=== PATIENT | female | born 1945 | race Caucasian/White ===

== ENCOUNTER 2020-04-14 10:59 | Emergency (ER) | payer OTHER, SELFPAY ==
--- NOTE | ~2020-04-14 | CT_ITS ---
EXAMINATION: CT abdomen pelvis w con EXAM DATE: 04/14/2020 13:41 INDICATION: Left-sided upper abdominal pain. TECHNIQUE: Spiral CT of the abdomen and pelvis was performed following intravenous injection of 100 m L Omnipaque 350. Axial, coronal and sagittal images were reviewed. The dose-length product (DLP) fo r this examination was 427.69 mGy-cm. The exposure was tailored according to patient size (auto mA e xposure control), and iterative reconstruction (ASIR) was used as additional dose reduction technique . Comparison is made to prior examination from 12/29/2008. FINDINGS: The liver, spleen, adrenal glands and pancreas are unremarkable. Gallbladder is unremarkab le. No biliary obstruction. Portal and splenic veins are patent. Kidneys enhance symmetrically. T here is no hydronephrosis. Patient has had hysterectomy. There is a right adnexal mass measuring 4 x 6 cm; recommend pelvic sonogram to evaluate possibility of ovarian neoplasm. The bladder is unremark able. There is no retroperitoneal or pelvic lymphadenopathy. The stomach and small bowel are unremarkable. There is moderate descending and sigmoid colonic diver ticulosis. Moderate amount of inflammation along the descending colon with focal wall thickening like ly edema. Appearance most consistent with acute uncomplicated diverticulitis. Inflammatory cancer is much less likely. No free intraperitoneal gas. The heart is normal in size. There are no pericar dial or pleural effusions. There are no osteoblastic or osteolytic lesions identified. Left hemipel vis Paget's disease. There is mild to moderate lumbar levoscoliosis and moderate to severe spondylosi s. Mild basilar emphysema. IMPRESSION: 1. Incidental right ovarian 6 cm mass; recommend MILL OPERATOR consult, pelvic sonogram for further evaluation . 2. Findings consistent with acute uncomplicated descending colonic diverticulitis. Follow-up CT or c olonoscopy recommended once acute symptoms resolve. 3. Paget's disease. Reviewed, dictated and finalized at location [facility]. IMPRESSION: 1. Incidental right ovarian 6 cm mass; recommend MILL OPERATOR consult, pelvic sonogram for further evaluation. 2. Findings consistent with acute uncomplicated descending colonic diverticuli tis. Follow-up CT or colonoscopy recommended once acute symptoms resolve. 3. Paget's disease.
[2020-04-14 11:24] VITALS: BP 121/87; PULSE 129; RESP 16; TEMP 36.3; O2SAT 99
[2020-04-14 12:30] VITALS: BP 121/87; PULSE 129; RESP 16; TEMP 36.3; O2SAT 99
--- NOTE | 2020-04-14 12:37 | ED.GENADULT ---
HPI - General Adult General Chief complaint: Urogenital-Female Stated complaint: left flank pain Time Seen by Provider: 04/14/20 12:09 Source: patient History of Present Illness HPI narrative: Patient is a 74 y/o female complaining left upper abdominal pain starting 2 days ago. She states that her pain feels like contractions and rates it as 6/10. Her pain radiates to her left lower abdomen. She has no vomiting, diarrhea or dysuria. Related Data Home Medications Medication Instructions Recorded Confirmed Lactobacillus acidophilus 1,000 mmu cells PO DAILY 05/17/19 05/24/19 ascorbic acid-collagen [Collagen 2 cap PO 05/17/19 Plus Vitamin C] aspirin [Enteric Coated Aspirin] 81 mg PO DAILY 05/17/19 05/17/19 azelastine 1 spray INTRANASAL Q12H PRN 05/17/19 05/17/19 biotin 1 mg 05/17/19 cholecalciferol (vitamin D3) 2,000 unit 05/17/19 [Vitamin D3] fluticasone propionate [Flonase 1 spray INTRANASAL DAILY PRN 05/17/19 05/24/19 Allergy Relief] lisinopril 40 mg PO DAILY 05/17/19 05/24/19 metformin 500 mg PO BID 05/17/19 05/24/19 omeprazole 40 mg PO DAILY 05/17/19 05/24/19 simvastatin 5 mg PO HS 05/17/19 05/24/19 Allergies Allergy/AdvReac Type Severity Reaction Status Date / Time codeine Allergy Unknown Verified 05/24/19 07:30 Review of Systems Constitutional: Constitutional: Denies chills, Denies fever(s), Denies headache(s) and Denies weakness Eyes: Eyes: Denies blurry vision ENT: Denies headache(s) and Denies neck pain Cardiovascular: Cardiovascular: Denies chest pain and Denies dyspnea Respiratory: Respiratory: Denies cough and Denies dyspnea Gastrointestinal: Gastrointestinal: Reports abdominal pain, Denies diarrhea, Denies nausea and Denies vomiting Genitourinary: Genitourinary: Denies hematuria and Denies dysuria Musculoskeletal: Musculoskeletal: Denies back pain and Denies neck pain Neurologic: Denies headache(s) and Denies weakness [facility] Past Medical History Medical History Arthritis Diabetes GERD (gastroesophageal reflux disease) Peripheral neuropathy Family History Family History Mother Cerebrovascular accident, Onset Age: 82 Sibling Family history of lung cancer Patient's sister is Family history of gastrointestinal disorder Father Family history of alcoholism, Onset Age: 70 Social History Social History Smoking status: Never smoker Alcohol intake: never Exam Const: General: no acute distress and well developed Orientation/consciousness: oriented to person, oriented to place, oriented to time and patient oriented x3 HENMT: Head: normocephalic Ears: external ears normal General nose exam: Normal external nose present Eyes: General: appearance normal, both eyes and all related structures Conjunctivae: conjunctivae normal Neck: Neck: normal visual inspection and full ROM Chest: Chest palpation & inspection: normal inspection of the chest and no tenderness Resp: Effort & Inspection: normal respiratory effort Auscultation: clear to auscultation bilaterally Cardio: Rate: tachycardic Rhythm: regular rhythm GI: GI Palp: Yes abdominal tenderness (Left upper and left lower quadrant) and Yes Soft to palpation Skin: General skin exam: normal color and turgor normal Neuro: General: oriented to person, oriented to place, oriented to time and patient oriented x3 Cognition (Neuro): normal cognition Extrem: General: normal to inspection, full ROM and no pedal edema Psych: Appearance: grossly normal Mental Status: mental status grossly normal Affect: normal affect Course Reevaluation(s) Reevaluation #1: Rechecked patient. Discussed with her about CT findings of diverticulitis and ovarian mass. Offered patient admission for IV antibiotics, but patient declined. She preferred to be di
[2020-04-14 12:42] LABS: Basophils Absolute Auto 0.1 K/mm3 (0.0-0.1); Basophils Percent Auto 0.6 % (0.2-1.2); Eosinophils Absolute Auto 0.1 K/mm3 (0-0.3); Eosinophils Percent Auto 0.4 % (0-4.4); Hematocrit 40.7 % (37.0-47.0); Hemoglobin 13.1 g/dL (12.0-15.0); Immature Granulocyte Absolute 0.04 K/mm3 (0.00-0.031); Immature Granulocyte Percent A 0.3 % (0-0.5); Lymphocytes Absolute Auto 2.26 K/mm3 (0.9-3.2); Lymphocytes Percent Auto 16.5 % (18.3-44.2); Mean Corpuscular HGB Conc 32.2 g/dl (32-36); Mean Corpuscular Hemoglobin 30.8 pg (26-34); Mean Corpuscular Volume 95.5 fl (80-100); Mean Platelet Volume 12.5 fl (7.4-10.4); Monocytes Absolute Auto 1.3 K/mm3 (0.1-0.6); Monocytes Percent Auto 9.1 % (2.6-8.5); Neutrophils Percent Auto 73.1 % (45.5-73.1); Platelet Count Result 208 k/mm3 (150-375); Red Blood Count 4.26 M/mm3 (4.2-5.4); Red Cell Distribution Width 14.2 % (11.5-14.5); White Blood Count 13.7 K/mm3 (4.5-10.0)
--- NOTE | 2020-04-14 12:51 | PC.NURSE ---
Patient refused EKG stating she feels this is not related to her heart and is wanting to avoid unnecessary cost. informed.
[2020-04-14 12:54] LABS: Anion Gap 9 mmol/L (8-16); Blood Urea Nitrogen 20 mg/dL (7-17); Carbon Dioxide 29 mmol/L (22-30); Chloride 101 mmol/L (98-107); Estimated CRCL calculation 31 ml/min; Estimated Glomerular Filt Rate 40; Glucose 132 mg/dL (65-105); Potassium 4.6 mmol/L (3.4-5.0); Sodium 139 mmol/L (137-145)
[2020-04-14] MEDS: KETOROLAC 15 MG/ML VIAL (*BKC) IV PUSH (13:15)
[2020-04-14 14:08] VITALS: BP 139/93; PULSE 99; RESP 16; O2SAT 99
[2020-04-14 14:25] LABS: Add Urine Microscopic? NO; Appearance Urine Clear (Clear); Bilirubin Urine Negative (Negative); Blood Urine Negative (Negative); Color Urine Yellow (Yellow); Glucose Urine UA Negative (Negative); Ketones Urine Negative (Negative); Leukocyte Esterase Ur Negative LEU/UL (Negative); Nitrate Urine Negative (Negative); Protein Urine Negative (Negative); Urobilinogen Urine Negative mg/dL (<2.0)
[2020-04-14 14:26] LABS: Bacteria Urine Trace /hpf; Mucus Urine Few /lpf; RBC Urine 0-2 /hpf (0-2); Squamous Epithelial Cell Urine Few /hpf (Few)
[2020-04-14] MEDS: CIPROFLOXACIN 400 MG/D5W 200ML 200 ML 200 MG IVPB (14:28)
[2020-04-14] MEDS: metroNIDAZOLE 500 MG/ISO 100ML 500 MG/100 ML BAG 100 MG IVPB (14:28)
[2020-04-14 14:30] LABS: Specific Grav Ur 1.036 (1.001-1.035)
[2020-04-14 15:45] VITALS: BP 139/75; PULSE 88; RESP 12; O2SAT 98
== END 2020-04-14 15:45 | disposition home or self-care (01) ==
PROVIDERS: Emergency Medicine; Emergency Provider Emergency Medicine; PCP Student in an Organized Health Care Education/Training Program
DX: K57.92 Diverticulitis of intestine, part unspecified, without perforation or abscess without bleeding (principal); N83.9 Noninflammatory disorder of ovary, fallopian tube and broad ligament, unspecified; Z79.82 Long term (current) use of aspirin; Z79.84 Long term (current) use of oral hypoglycemic drugs; M19.90 Unspecified osteoarthritis, unspecified site; E11.42 Type 2 diabetes mellitus with diabetic polyneuropathy
CPT/HCPCS: 36415; 74177; 80048; 81003; 85025; 96365; 96368; 96375; 99284; J0744; J1885; Q9967

== ENCOUNTER → 2020-05-09 10:52 | Outpatient (CLI) | payer OTHER, SELFPAY ==
--- NOTE | ~2020-05-09 | CT_ITS ---
EXAMINATION: CT abdomen pelvis w con DATE: 05/09/2020 11:28 INDICATION: Diverticulitis TECHNIQUE: Computed tomography (CT) of the abdomen and pelvis was performed with 100 cc Omnipaque 350 intravenous contrast. Automated exposure control and iterative reconstruction technique were employe d. Exam dose: 609.77 mGy-cm total exam DLP. COMPARISON: 04/14/2020 CT abdomen pelvis FINDINGS: Minimal atelectasis at the lung bases. No pericardial or pleural effusion. Heart size is within normal limits. The liver, gallbladder, bile ducts, spleen, pancreas and pancreatic duct are normal in appearance. Normal adrenal glands. No renal mass lesion or urinary tract calculus or hydroureteronephrosis. The urinary bladder is unrem arkable. Again noted is an approximately 4 x 6 cm soft tissue mass in the right adnexal area. Right ovarian ma lignancy cannot be excluded. Consider further evaluation with pelvic ultrasound examination. There is mild to moderate diffuse urinary bladder wall thickening; cystitis is not excluded. The uterus and left ovary are not identified. Normal caliber of the abdominal aorta. No intraperitoneal or retroperitoneal or pelvic mass lesion or adenopathy or ascites is noted otherwise. Small sliding hiatal hernia. There are numerous diverticula of the sigmoid and descending colon; no CT evidence of diverticulitis. There are some small bowel air-fluid levels but no abnormal dilatation of small or large bowel. 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 There is severe degenerative disease at T12-L1. There is degenerative disc disease of moderately noris re degree at L2-3, L3-4, L4-5 and L5-S1. IMPRESSION: Diverticulosis of left colon. No evidence of diverticulitis. Resolution of distal descen ding colon diverticulitis since 04/14/2020 Small sliding hiatal hernia 4 x 6 cm right adnexal mass, of concern for right ovarian malignancy. Consider further evaluation wit h pelvic ultrasound examination Reviewed, dictated and finalized at [facility]. Reviewed, dictated and finalized at location [facility]. IMPRESSION: Diverticulosis of left colon. No evidence of diverticulitis. Resol ution of distal descending colon diverticulitis since 04/14/2020 Small sliding hiatal hernia 4 x 6 cm right adnexal mass, of concern for right ovarian malignancy. Consider further evaluation with pelvic ultrasound examination
[2020-05-09 11:14] LABS: Estimated Glomerular Filt Rate 49
== END ==
PROVIDERS: PCP Student in an Organized Health Care Education/Training Program; Visit Provider Student in an Organized Health Care Education/Training Program
DX: Z87.19 Personal history of other diseases of the digestive system (principal); K44.9 Diaphragmatic hernia without obstruction or gangrene; K57.30 Diverticulosis of large intestine without perforation or abscess without bleeding; N83.201 Unspecified ovarian cyst, right side
CPT/HCPCS: 74177; Q9967

== ENCOUNTER → 2020-06-13 15:17 | Outpatient (CLI) | payer OTHER, SELFPAY ==
--- NOTE | ~2020-06-13 | MM_ITS ---
EXAMINATION: MM screening daija BI w merlyn HISTORY: Screening mammogram TECHNIQUE: Craniocaudal and mediolateral oblique 3-D tomosynthesis images were obtained and synthetic 2-D images were generated. CAD analysis was submitted and interpreted. COMPARISON: 02/12/2019 bilateral digital screening mammogram 01/19/2018 limited left breast ultrasound 05/30/2018, 12/13/2016 bilateral digital screening mammogram examinations BREAST PARENCHYMAL COMPOSITION: FINDINGS: Benign calcifications There is no evidence of suspicious mass, calcification, or architectu ral distortion to suggest malignancy in either breast. There has been no suspicious interval change. IMPRESSION: 1. No mammographic evidence of malignancy. 2. Recommend routine screening mammography in one year. BI-RADS Category 2: Benign finding(s). Reviewed, dictated and finalized at location A. CAL OR SURGICAL INSTRUMENT MAKER
== END ==
PROVIDERS: PCP Student in an Organized Health Care Education/Training Program; Visit Provider Obstetrics & Gynecology
DX: Z12.31 Encounter for screening mammogram for malignant neoplasm of breast (principal)
CPT/HCPCS: 77063; 77067

== ENCOUNTER 2020-06-18 11:32 | Outpatient (CLI) | payer OTHER, SELFPAY ==
--- NOTE | 2020-06-18 11:36 | ECG_ITS ---
Measurements Intervals [place] Rate: 89 P: 32 NC: 153 QRS: -4 QRSD: 80 T: 46 QT: 339 QTc: 414 Interpretive Statements SINUS RHYTHM POSSIBLE LEFT ATRIAL ENLARGEMENT POSSIBLE LEFT VENTRICULAR HYPERTROPHY INFERIOR INFARCT, AGE INDETERMINATE BASELINE ARTIFACT- I, II, III, AVR, AVL, AVF, V4 ABNORMAL ECG Electronically Signed On 06-18-2020 12:27:59 FOREIGN EXCHANGE CLERK by Daniel Rangel D.O.
[2020-06-18 12:03] LABS: Anion Gap 11 mmol/L (8-16); Blood Urea Nitrogen 16 mg/dL (7-17); Calcium 9.9 mg/dL (8.4-10.2); Carbon Dioxide 28 mmol/L (22-30); Chloride 103 mmol/L (98-107); Estimated Glomerular Filt Rate > 60; Glucose 108 mg/dL (65-105); Potassium 4.7 mmol/L (3.4-5.0); Sodium 142 mmol/L (137-145)
== END 2020-06-18 11:33 | disposition home or self-care (01) ==
LOC: ANHSURGERY 11:36
PROVIDERS: Anesthesiology; PCP Student in an Organized Health Care Education/Training Program; Visit Provider Obstetrics & Gynecology
DX: N83.8 Other noninflammatory disorders of ovary, fallopian tube and broad ligament (principal); I10 Essential (primary) hypertension; E11.9 Type 2 diabetes mellitus without complications; Z01.818 Encounter for other preprocedural examination; R94.31 Abnormal electrocardiogram [ECG] [EKG]
CPT/HCPCS: 36415; 80048; 86850; 86900; 86901; 93005

== ENCOUNTER 2020-06-20 02:06 | Outpatient (CLI) | payer OTHER, SELFPAY ==
[2020-06-20 18:46] LABS: SARS-CoV-2 RNA PCR Negative
== END 2020-06-20 02:07 | disposition home or self-care (01) ==
LOC: ANHCOVIDDT 02:07
PROVIDERS: PCP Student in an Organized Health Care Education/Training Program; Visit Provider Obstetrics & Gynecology
DX: Z01.818 Encounter for other preprocedural examination (principal); Z20.828 Contact with and (suspected) exposure to other viral communicable diseases
CPT/HCPCS: 87635; C9803; U0003

== ENCOUNTER 2020-06-23 01:35 | Day surgery (SDC) | payer OTHER, SELFPAY ==
[2020-06-16 16:00] VITALS: BMI 27.5
[2020-06-23] VITALS (9 sets, daily range): BP systolic 127–161; BP diastolic 55–78; PULSE 70–97; RESP 13–16; TEMP 36.2–36.8; O2SAT 90–100
[2020-06-23] MEDS: ACETAMINOPHEN 500 MG TABLET 1000 MG PO (09:58)
[2020-06-23] MEDS: KETOROLAC 15 MG/ML VIAL (*BKC) IV PUSH (10:12)
[2020-06-23 10:17] LABS: Glucose Point of Care 127 (65-105)
--- NOTE | 2020-06-23 10:53 | WPDANESEPPF ---
Anes - Initial Pre Proc Eval Procedure: Operation Date: 06/23/20 11:30 Proposed Procedures p Laparoscopic Bilateral Salpingo-Oophorectomy - Sraah Sinclair MD Date/Time: 06/23/20 10:53 Surgeon: Sarah Sinclair MD Pre Op Diagnosis: Ovarian Mass Patient Data Age: 74 Gender: F Height: 1.63 m Weight: 71.2 kg Last Vital Signs Temp 36.8 C 06/23/20 09:54 Pulse 85 06/23/20 09:54 Resp 16 06/23/20 09:54 BP 137/74 06/23/20 09:54 Pulse Ox 97 06/23/20 09:54 Allergies Allergy/AdvReac Type Severity Reaction Status Date / Time codeine AdvReac Unknown Fatigued/FA Verified 06/23/20 10:00 INTED Home Medications Medication Instructions Recorded Confirmed Type Lactobacillus acidophilus 1,000 mmu cells PO DAILY 05/17/19 06/23/20 History ascorbic acid-collagen [Collagen 3 cap PO DAILY 05/17/19 06/23/20 History Plus Vitamin C] azelastine 1 spray INTRANASAL Q12H PRN 05/17/19 06/23/20 History biotin 1 mg PO DAILY 05/17/19 06/23/20 History cholecalciferol (vitamin D3) 2,000 unit PO DAILY 05/17/19 06/23/20 History [Vitamin D3] fluticasone propionate [Flonase 1 spray INTRANASAL DAILY PRN 05/17/19 06/23/20 History Allergy Relief] lisinopril 40 mg PO DAILY 05/17/19 06/23/20 History metformin 500 mg PO BID 05/17/19 06/23/20 History omeprazole 20 mg PO DAILY 05/17/19 06/23/20 History simvastatin 20 mg PO HS 05/17/19 06/23/20 History tolterodine 2 mg capsule,extended 2 mg PO DAILY #90 cap 08/01/19 06/23/20 Rx release 24 hr aspirin 325 mg PO DAILY 06/16/20 06/23/20 History magnesium 500 mg PO DAILY 06/16/20 06/23/20 History multivitamin with minerals 3 tablet PO DAILY 06/16/20 06/23/20 History [Hair,Skin and Nails] Laboratory Tests 06/23/20 10:09 POC Capillary Glucose 127 mg/dl H mg/dl (65-105) Patient hx anesthesia problems: none Family hx anesthesia problems: none [facility] Past Medical History Medical History (Updated 06/23/20 @ 10:53 by Reggie Ugarte DO) Arthritis Diabetes GERD (gastroesophageal reflux disease) Hyperlipidemia Hypertension Peripheral neuropathy Family History Family History Mother Cerebrovascular accident, Onset Age: 82 Sibling Family history of lung cancer Patient's sister is Family history of gastrointestinal disorder Father Family history of alcoholism, Onset Age: 70 Social History Social History Smoking status: Never smoker Alcohol intake: never Living arrangements: with family Spiritual care concerns: No Anes - Eval Final PreProcedure Day of Procedure 06/23/20 10:53 Patient weight: overweight Heart: regular rate and rhythm Lungs: clear to auscultation and normal air movement Airway: Mallampati scale class II Neurological: alert and oriented Last oral intake: >/= 8 hours ASA classification: III Emergent: no Anesthetic plan: proceed Anesthesia type and monitoring: general ETT and standard monitoring Informed Consent: The patient's anesthetic plan and its attendant risks and benefits were discussed with the patient/family/POA. Questions were solicited and answers provided to the satisfaction of the patient/family/POA.
--- NOTE | 2020-06-23 11:03 | SUR.PREOP ---
1055-PT AWARE SURGEON DELAYS SELF ~30 MINUTES. DOES NOT DESIRE BE NOTIFIED OF DELAY.
[2020-06-23] MEDS: LACTATED RINGERS 1,000 ML 30 ML IV CONT ×2 (11:15→13:41)
--- NOTE | 2020-06-23 11:23 | WPDHPUPDATE1 ---
History and Physical Update Update Date/Time: 06/23/20 11:23 History and Physical has been reviewed, including an updated exam of the patient. There are NO changes in the patient's condition. Risks, benefits, and alternatives have been discussed and questions answered. Patient agrees to proceed with procedure.
--- NOTE | 2020-06-23 13:37 | PM.PROC ---
Procedure Note - Detailed Date of procedure: 06/23/20 Pre-op diagnosis: Ovarian Mass Post-op diagnosis: same (Intra-abdominal adhesions) Procedure performed: Laparoscopic bilateral salpingo-oophorectomy with adhesiolysis -45 minutes Description of procedure: The patient was taken the operating room. She was prepped and draped in the dorsal lithotomy position after induction of general anesthesia. A 5 mm left upper quadrant incision was made in the abdominal skin with a scalpel. A 5 mm trocar was inserted the intra-abdominal cavity under direct visualization of the scope. A 11 mm left lower quadrant incision was made with the scalp on the abdominal skin and a 11 mm trocar was inserted the intra-abdominal cavity under direct visualization of the scope. A 5 mm infraumbilical incision was made with scalpel and a 5 mm trocar was inserted into the intra-abdominal cavity under direct visualization of the scope. Adhesiolysis was performed for about 1 hour. The omentum was densely adherent to the lower 3rd of the abdominal wall. Careful sharp and blunt dissection were performed along with cautery. The right ovary was then amputated. It was the larger ovary. The infundibulopelvic ligament was raised after identification of the ureter and was cauterized transected with LigaSure. The para ovarian tissue was cauterized transected in a similar fashion all the way around the ovary until was amputated. It was placed in endobag thickened and very small pieces. The left ovary was amputated in a similar fashion. The ureter was dissected down the right side and it was intact from the pelvic brim down to the area of the uterine artery. The pelvis was irrigated with copious amounts of normal saline. The pneumoperitoneum was reduced. The trocars were removed. The patient was taken recovery room stable condition. Sponge lap and needle counts were correct x2. Anesthesia: GETA Surgeon: Sarah Sinclair MD Estimated blood loss (mL): 20 Drains: No Packing: No Complications: No immediate complications Condition: stable Disposition: PACU Findings: Intra-abdominal adhesions, enlarged right ovary containing soft yellow tissue., normal left ovary,
[2020-06-23 13:47] LABS: Glucose Point of Care 129 (65-105)
[2020-06-23] MEDS: fentaNYL CITRATE INJ (*CRX) 100 MCG/2 ML VIAL 25 MCG IV PUSH ×3 (13:53→14:28)
[2020-06-23] MEDS: oxyCODONE HCL (*CRX) 5 MG TAB IR PO (15:06)
== END 2020-06-23 15:47 | disposition home or self-care (01) ==
PROVIDERS: PCP Student in an Organized Health Care Education/Training Program; Visit Provider Obstetrics & Gynecology
PROC: (CPT 49320; principal; 2020-06-23 11:30)
DX: D27.0 Benign neoplasm of right ovary (principal); N73.6 Female pelvic peritoneal adhesions (postinfective); I10 Essential (primary) hypertension; E11.42 Type 2 diabetes mellitus with diabetic polyneuropathy; E78.5 Hyperlipidemia, unspecified; K21.9 Gastro-esophageal reflux disease without esophagitis; Z79.84 Long term (current) use of oral hypoglycemic drugs; Z79.82 Long term (current) use of aspirin
CPT/HCPCS: 58661; 88305; 88307; A9270; J1100; J1885; J2250; J2405; J2704; J2710; J3010; J7030; J7120

== ENCOUNTER → 2020-07-29 10:20 | Outpatient (CLI) | payer OTHER, SELFPAY ==
--- NOTE | ~2020-07-29 | DEXA_ITS ---
Bone Density Report Name: Lashawn lAexander Age: 74 Sex: Female Ethnicity: White Date of : 1945 Indication: postmenopausal; screening for osteoporosis; height loss; prior fracture; hysterectomy; Referring Provider: Sarah Sinclair Study: Bone densitometry was performed. Exam Date: July 29, 2020 Accession number: [id number] Bone Density: Region BMD T-score Z-score Classification AP Spine (L2, L3, L4) 1.093 0.1 2.5 Normal Femoral Neck (Left) 0.732 -1.1 1.0 Osteopenia Total Hip (Left) 0.934 -0.1 1.7 Normal Femoral Neck (Right) 0.719 -1.2 0.8 Osteopenia Total Hip (Right) 0.908 -0.3 1.4 Normal Total Hip Mean 0.921 -0.2 1.6 Normal World Health Organization criteria for BMD impression classify patients as: Normal (T-score at or above -1.0), Osteopenia (T-score between -1.0 and -2.5), or Osteoporosis (T-score at or below -2.5). 10-year Fracture Risk(1): Major Osteoporotic Fracture 15% Hip Fracture 2.2% Reported Risk Factors: [place] (), Neck BMD=0.719, BMI=28.0, previous fracture (1) FRAX(R) Version 3.08. Fracture probability calculated for an untreated patient. Fracture probability may be lower if the patient has received treatment. Previous Exams: Region Exam Age BMD T-score BMD Change BMD Change Date g/cm2 vs Baseline vs Previous AP Spine(L2, L3, L4) 07/29/2020 74 1.093 0.1 0.070* -0.066* 03/21/2017 71 1.159 0.7 0.137* 0.070* 11/20/2014 69 1.090 0.1 0.067* -0.001 01/01/2011 65 1.091 0.1 0.068* 0.063* 11/27/2008 63 1.028 -0.5 0.005 0.005 11/23/2006 61 1.023 -0.5 Total Hip(Left) 07/29/2020 74 0.934 -0.1 0.038* -0.001 03/21/2017 71 0.935 -0.1 0.039* 0.038* 11/20/2014 69 0.898 -0.4 0.001 0.005 01/01/2011 65 0.893 -0.4 -0.004 0.068* 11/27/2008 63 0.825 -1.0 -0.072* -0.072* 11/23/2006 61 0.896 -0.4 Total Hip(Right) 07/29/2020 74 0.908 -0.3 0.009 -0.029* 03/21/2017 71 0.937 0.0 0.038* -0.009 11/20/2014 69 0.946 0.0 0.047* 0.067* 01/01/2011 65 0.880 -0.5 -0.020 0.006 11/27/2008 63 0.874 -0.6 -0.025 -0.025 11/23/2006 61 0.899 -0.4 *Denotes significance at 95% confidence level, LSC for AP Spine = 0.022 g/cm2, LSC for Total Hip = 0.027 g/cm2 Clinical Information Provided by Patient: ----
== END ==
PROVIDERS: PCP Student in an Organized Health Care Education/Training Program; Visit Provider Obstetrics & Gynecology
DX: Z78.0 Asymptomatic menopausal state (principal); M85.852 Other specified disorders of bone density and structure, left thigh; M85.851 Other specified disorders of bone density and structure, right thigh
CPT/HCPCS: 77080

== ENCOUNTER → 2020-09-02 13:12 | Outpatient (CLI) | payer OTHER, SELFPAY ==
--- NOTE | ~2020-09-02 | CT_ITS ---
EXAMINATION: CT abdomen pelvis w con DATE: 09/02/2020 13:40 INDICATION: Left lower quadrant abdominal pain TECHNIQUE: Computed tomography (CT) of the abdomen and pelvis was performed with 100 cc Omnipaque 350 intravenous contrast. Automated exposure control and iterative reconstruction technique were employe d. Exam dose: 534.47 mGy-cm total exam DLP. COMPARISON: 05/09/2020 CT abdomen pelvis FINDINGS: There are likely chronic interstitial changes predominating in the peripheral lower lung zo annie. Heart size is borderline. No pericardial or pleural effusion. The liver, gallbladder, bile ducts, spleen, pancreas and pancreatic duct are unremarkable. Normal mor phology of the adrenal glands. Probable very small mid lateral right renal cyst. The kidneys are otherwise unremarkable. No urinary tract calculus or hydroureteronephrosis. Normal caliber of the abdominal aorta. No intraperitoneal or retroperitoneal or pelvic mass lesion or adenopathy or ascites. Status post hysterectomy. The urinary bladder is unremarkable. Small sliding hiatal hernia. There are innumerable diverticula of the sigmoid and descending colon; no CT evidence of diverticulit is is detected. No abscess. No bowel obstruction, bowel wall thickening, pneumatosis or intraperitone al free air. Incidental finding of Paget's disease of the left hemipelvis. There is severe degenerative disc disease and eburnation and spurring at T12-L1. Multilevel degenerat larisa disc disease of the lumbar spine. IMPRESSION: Diverticulosis of the sigmoid and descending colon; no CT evidence of diverticulitis Paget's disease of the left hemipelvis Prominent degenerative disc disease of the lower thoracic and lumbar spine Status post hysterectomy Small sliding hiatal hernia Reviewed, dictated and finalized at [facility]. Reviewed, dictated and finalized at location [facility]. ATTENDANT
[2020-09-02 13:30] LABS: Estimated Glomerular Filt Rate 54
== END ==
PROVIDERS: PCP Student in an Organized Health Care Education/Training Program; Visit Provider Student in an Organized Health Care Education/Training Program
DX: K57.92 Diverticulitis of intestine, part unspecified, without perforation or abscess without bleeding (principal); K44.9 Diaphragmatic hernia without obstruction or gangrene; M88.88 Osteitis deformans of other bones
CPT/HCPCS: 74177; Q9967

== ENCOUNTER 2020-10-12 16:24 | Emergency (ER) | payer OTHER, SELFPAY ==
--- NOTE | ~2020-10-12 | CT_ITS ---
EXAMINATION: CT abdomen pelvis wo con DATE: 10/12/2020 19:10 INDICATION: Right flank pain. TECHNIQUE: Computed tomography (CT) of the abdomen and pelvis was performed without intravenous contr ast. Automated exposure control and iterative reconstruction technique were employed. The dose-length product was 187.05 mGy-cm. COMPARISON: CT abdomen and pelvis 09/02/2020 FINDINGS: The visualized portions of the lung bases demonstrates mild atelectasis and mild chronic rolan ng disease. A calcified right lung nodule and calcified paraesophageal lymph node are consistent with old granulomatous disease. No pleural effusion. The heart size is normal. No pericardial effusion. T he liver and gallbladder are normal. Calcifications in the spleen are consistent with old granulomato us disease. The pancreas, adrenal glands, and left kidney are normal. There is a [address] one. There is diverticulosis of the colon without evidence of diverticulitis. There are no dilated lo ops of bowel. The appendix is not visualized. There are no pathologically enlarged lymph nodes. There is no free intraperitoneal fluid. 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 There is severe thoracolumbar spondylosis. IMPRESSION: 1. 1 mm nonobstructing right kidney stone. Reviewed, dictated and finalized at location A.
[2020-10-12 16:36] VITALS: BP 164/80; PULSE 93; RESP 20; TEMP 36.4; O2SAT 96
[2020-10-12 16:54] LABS: Basophils Absolute Auto 0.1 K/mm3 (0.0-0.1); Basophils Percent Auto 1.1 % (0.2-1.2); Eosinophils Absolute Auto 0.7 K/mm3 (0-0.3); Eosinophils Percent Auto 7.9 % (0-4.4); Hematocrit 37.8 % (37.0-47.0); Hemoglobin 12.1 g/dL (12.0-15.0); Immature Granulocyte Absolute 0.02 K/mm3 (0.00-0.031); Immature Granulocyte Percent A 0.2 % (0-0.5); Lymphocytes Absolute Auto 2.27 K/mm3 (0.9-3.2); Lymphocytes Percent Auto 27.2 % (18.3-44.2); Mean Corpuscular Hemoglobin 30.3 pg (26-34); Mean Corpuscular Volume 94.5 fl (80-100); Mean Platelet Volume 11.8 fl (7.4-10.4); Monocytes Absolute Auto 0.8 K/mm3 (0.1-0.6); Monocytes Percent Auto 9.7 % (2.6-8.5); Neutrophils Absolute Auto 4.5 K/mm3 (1.3-6.7); Neutrophils Percent Auto 53.9 % (45.5-73.1); Platelet Count Result 223 k/mm3 (150-375); Red Cell Distribution Width 13.9 % (11.5-14.5); White Blood Count 8.4 K/mm3 (4.5-10.0)
[2020-10-12 17:08] LABS: Anion Gap 7 mmol/L (8-16); Blood Urea Nitrogen 22 mg/dL (7-17); Calcium 9.4 mg/dL (8.4-10.2); Carbon Dioxide 26 mmol/L (22-30); Chloride 106 mmol/L (98-107); Estimated CRCL calculation 42 ml/min; Estimated Glomerular Filt Rate 54; Glucose 145 mg/dL (65-105); Potassium 4.9 mmol/L (3.4-5.0); Sodium 139 mmol/L (137-145)
[2020-10-12 18:29] LABS: Add Urine Microscopic? YES; Appearance Urine Cloudy (Clear); Bacteria Urine 2+ /hpf; Bilirubin Urine Negative (Negative); Color Urine Yellow (Yellow); Glucose Urine UA Negative (Negative); Ketones Urine Negative (Negative); Leukocyte Esterase Ur 3+ LEU/UL (Negative); Mucus Urine Rare /lpf; Nitrate Urine Negative (Negative); Protein Urine 1+ mg/dL (Negative); Specific Grav Ur 1.028 (1.001-1.035); Squamous Epithelial Cell Urine Many /hpf (Few); Transitional Epi Cells Urine Rare /hpf (None Seen); Urobilinogen Urine Negative mg/dL (<2.0); WBC Urine 31-50 /hpf
[2020-10-12] MEDS: SODIUM CHLORIDE 0.9% IV 1,000 ML 999 ML IV CONT (18:57)
[2020-10-12] MEDS: MORPHINE SULFATE (*CRX) 4 MG/ML INJ IV PUSH (18:57)
[2020-10-12] MEDS: ONDANSETRON INJ 4 MG/2 ML VIAL IV PUSH (18:57)
[2020-10-12] MEDS: FAMOTIDINE 20 MG/2 ML VIAL IV PUSH (18:57)
[2020-10-12 18:58] LABS: Blood Urine Negative (Negative)
--- NOTE | 2020-10-12 19:27 | PC.NURSE ---
Pt returned from radiology and is resting on cart in its lowest position with call button and personal items within reach. Vitals stable and pt in no obvious distress at this time. Breathing even and unlabored at this time. Pt requesting water. Will notify EDMD. Pt advised to press call button for assistance.
--- NOTE | 2020-10-12 20:24 | ED.GENADULT ---
HPI - General Adult General Chief complaint: Back Pain/Injury Stated complaint: RT FLANK PAIN Time Seen by Provider: 10/12/20 18:18 Source: patient Mode of arrival: ambulatory Limitations: no limitations History of Present Illness HPI narrative: Patient is a 75-year-old female who presents with flank pain that began acutely today noting aching pain to the right flank is a moderate aching pain denies injury trauma illness vomiting urinary or bowel habit issues patient presents in no distress does appear slightly uncomfortable patient took a hydrocodone prior to arrival Related Data Home Medications Medication Instructions Recorded Confirmed Collagen Plus Vitamin C 3 cap PO DAILY 05/17/19 06/23/20 Lactobacillus acidophilus 1,000 mmu cells PO DAILY 05/17/19 06/23/20 azelastine 1 spray INTRANASAL Q12H PRN 05/17/19 06/23/20 biotin 1 mg PO DAILY 05/17/19 06/23/20 cholecalciferol (vitamin D3) 2,000 unit PO DAILY 05/17/19 06/23/20 [Vitamin D3] fluticasone propionate [Flonase 1 spray INTRANASAL DAILY PRN 05/17/19 06/23/20 Allergy Relief] lisinopril 40 mg PO DAILY 05/17/19 06/23/20 metformin 500 mg PO BID 05/17/19 06/23/20 omeprazole 20 mg PO DAILY 05/17/19 06/23/20 simvastatin 20 mg PO HS 05/17/19 06/23/20 aspirin 325 mg PO DAILY 06/16/20 06/23/20 magnesium 500 mg PO DAILY 06/16/20 06/23/20 multivitamin with minerals 3 tablet PO DAILY 06/16/20 06/23/20 [Hair,Skin and Nails] Allergies Allergy/AdvReac Type Severity Reaction Status Date / Time codeine AdvReac Unknown Fatigued/FA Verified 10/12/20 16:39 INTED Review of Systems Review of Systems: All systems reviewed & are unremarkable except as noted in HPI and below PMFSH Past Medical History Medical History Arthritis Diabetes GERD (gastroesophageal reflux disease) Hyperlipidemia Hypertension Peripheral neuropathy Family History Family History Mother Cerebrovascular accident, Onset Age: 82 Sibling Family history of lung cancer Patient's sister is Family history of gastrointestinal disorder Father Family history of alcoholism, Onset Age: 70 Social History Social History Smoking status: Never smoker Alcohol intake: never Gender identity (if verbalized by the patient): Female Spiritual care concerns: No Exam Narrative: Exam Narrative: GENERAL: Well-appearing, well-nourished, uncomfortable and in no acute distress. HEAD: Normocephalic, atraumatic. EYES: PERRLA and EOMI. ENT: Nares clear, no rhinorrhea or epistaxis. Mucous membranes moist. CHEST: Clear to auscultation. No respiratory distress. No wheezes rales or rhonchi HEART: Regular rate and rhythm. No murmur heard. Normal peripheral pulses. ABDOMEN: Soft, tenderness of the right flank no rebound or guarding, nondistended EXTREMITIES: Normal range of motion. No edema. SKIN: Warm, dry, no rash. NEURO: No focal deficits. Alert and oriented x3. PSYCH: Normal mood and affect. Course Course Emergency Course: Patient was hydrated in the emergency department given pain medication and IV antibiotics patient noted improvement of symptoms resting comfortably at this time patient feels comfortable with the treatment plan for discharge home will be placed on antibiotics agrees to follow with primary care was also given reasons to return and agrees with this plan Vital Signs Vital signs: Vital Signs Temperature 97.5 F L 10/12/20 16:36 Pulse Rate 93 10/12/20 16:36 Respiratory Rate 20 10/12/20 16:36 Blood Pressure 164/80 H 10/12/20 16:36 Pulse Oximetry 96 10/12/20 16:36 Temperature 97.5 F L 10/12/20 16:36 Pulse Rate 93 10/12/20 16:36 Respiratory Rate 20 10/12/20 16:36 Blood Pressure 164/80 H 10/12/20 16:36 Pulse Oximetry 96 10/12/20 16:36 Medical Decision Making
[2020-10-12 20:34] VITALS: BP 128/68; PULSE 74; RESP 21; TEMP 37.3; O2SAT 94
== END 2020-10-12 20:41 | disposition home or self-care (01) ==
PROVIDERS: Emergency Provider Emergency Medicine; PCP Student in an Organized Health Care Education/Training Program
DX: N39.0 Urinary tract infection, site not specified (principal); M19.90 Unspecified osteoarthritis, unspecified site; K21.9 Gastro-esophageal reflux disease without esophagitis; E78.5 Hyperlipidemia, unspecified; I10 Essential (primary) hypertension; E11.42 Type 2 diabetes mellitus with diabetic polyneuropathy; Z79.82 Long term (current) use of aspirin; Z79.84 Long term (current) use of oral hypoglycemic drugs; N20.0 Calculus of kidney
CPT/HCPCS: 36415; 74176; 80048; 81001; 85025; 87077; 87086; 87088; 87147; 87181; 87186; 96365; 96375; 99284; J0696; J2270; J2405; J7030

== ENCOUNTER 2020-10-13 19:39 | Emergency (ER) | payer OTHER, SELFPAY ==
--- NOTE | ~2020-10-13 | CT_ITS ---
EXAMINATION: CT abdomen pelvis wo con DATE: 10/13/2020 20:41 INDICATION: Right flank pain TECHNIQUE: Computed tomography (CT) of the abdomen and pelvis was performed without intravenous contr ast. The dose-length product (DLP) was 571.44 mGy-cm. Automated exposure control and iterative recons truction technique were employed. COMPARISON: 10/12/2020 FINDINGS: Again noted are mild atelectasis and chronic lung disease in the visualized lung bases. Pun ctate calcifications in an otherwise normal spleen likely represent healed granulomatous disease. The liver, pancreas, gallbladder, and adrenal glands are normal. The kidneys are unremarkable. There is no hydronephrosis or hydroureter. No stones are present in the ureters or bladder. A moderate volume of colonic stool is present. No pathologically enlarged abdominal or pelvic lymph nodes are identifie d. There is no free intraperitoneal gas or evidence of bowel obstruction. Cortical and trabecular thi ckening are again noted in the left innominate bone, consistent with Paget's disease. There is severe thoracolumbar spondylosis. The appendix is not visualized. IMPRESSION: 1. No CT correlate for the patient's symptoms. Reviewed, dictated and finalized at location A.
[2020-10-13 19:42] VITALS: BP 176/74; PULSE 82; RESP 16; TEMP 36.7; O2SAT 94
--- NOTE | 2020-10-13 19:52 | ED.ABDPAIN ---
HPI - Abdominal Pain General Chief Complaint: Abdominal Pain Stated Complaint: R flank Time Seen by Provider: 10/13/20 19:49 Source: patient Mode of arrival: ambulatory Limitations: no limitations History of Present Illness HPI narrative: Patient is a 75-year-old female complaining of right flank pain, 9 out of 10, sharp, nonradiating started 3 days ago. Patient was seen here for the same complaints yesterday had labs and CT scan of abdomen pelvis done, was told that she had a urinary tract infection, was given IV antibiotics here in the ER and discharged home on oral antibiotics and Pyridium. CT scan of abdomen pelvis showed a 1 mm kidney stone on the right. Patient denies any chest pain, shortness of breath, abdominal pain, nausea, vomiting, diarrhea, fever or chills. Patient denies any urinary symptoms. Related Data Home Medications Medication Instructions Recorded Confirmed Collagen Plus Vitamin C 3 cap PO DAILY 05/17/19 06/23/20 Lactobacillus acidophilus 1,000 mmu cells PO DAILY 05/17/19 06/23/20 azelastine 1 spray INTRANASAL Q12H PRN 05/17/19 06/23/20 biotin 1 mg PO DAILY 05/17/19 06/23/20 cholecalciferol (vitamin D3) 2,000 unit PO DAILY 05/17/19 06/23/20 [Vitamin D3] fluticasone propionate [Flonase 1 spray INTRANASAL DAILY PRN 05/17/19 06/23/20 Allergy Relief] lisinopril 40 mg PO DAILY 05/17/19 06/23/20 metformin 500 mg PO BID 05/17/19 06/23/20 omeprazole 20 mg PO DAILY 05/17/19 06/23/20 simvastatin 20 mg PO HS 05/17/19 06/23/20 aspirin 325 mg PO DAILY 06/16/20 06/23/20 magnesium 500 mg PO DAILY 06/16/20 06/23/20 multivitamin with minerals 3 tablet PO DAILY 06/16/20 06/23/20 [Hair,Skin and Nails] Allergies Allergy/AdvReac Type Severity Reaction Status Date / Time codeine AdvReac Unknown Fatigued/FA Verified 10/12/20 16:39 INTED Review of Systems Review of Systems: All systems reviewed & are unremarkable except as noted in HPI and below Constitutional: Constitutional: Denies body ache(s), Denies chills, Denies excessive sweating, Denies fatigue, Denies fever(s), Denies headache(s), Denies lethargy, Denies malaise, Denies weakness and Denies weight loss Eyes: Eyes: Denies blurry vision, Denies change in vision and Denies loss of vision ENT: Denies dizziness, Denies ear discharge, Denies headache(s), Denies lip swelling, Denies epistaxis, Denies nasal congestion, Denies neck pain, Denies throat swelling and Denies tongue swelling Cardiovascular: Cardiovascular: Denies chest pain, Denies chest pain at rest, Denies chest pain with activity, Denies diaphoresis, Denies rapid heart rate, Denies edema, Denies irregular heart rhythm, Denies lightheadedness, Denies palpitations, Denies dyspnea and Denies dyspnea on exertion Respiratory: Respiratory: Denies chest congestion, Denies cough, Denies hemoptysis, Denies dyspnea and Denies dyspnea on exertion Gastrointestinal: Gastrointestinal: Denies abdominal pain, Denies melena, Denies hematochezia, Denies diarrhea, Denies nausea, Denies vomiting and Denies hematemesis Musculoskeletal: Musculoskeletal: Denies abnormal gait, Denies deformity, Denies joint swelling, Denies limited range of motion, Denies neck pain and Denies numbness Neurologic: Denies Abnormal speech present, Denies abnormal gait, Denies confusion, Denies dizziness, Denies headache(s), Denies focal weakness, Denies loss of vision, Denies numbness, Denies Other visual disturbances, Denies Sensory deficit (Neuro) and Denies weakness Psychiatric: Psychiatric: Denies confusion, Denies depression, Denies auditory hallucinations, Denies homicidal ideation and Denies suicidal ideation Endocrine: Endocrine: Denies cold intolerance, Denies excessive sweating, Denies fatigue, Denies heat intolerance and Denies palpitations Hematologic/Lymphatic: Hematologic/Lymphatic: Denies easy bleeding and Denies easy bruising Allergic/Immunologic: Allergic/Immunologic: Denies lip swelling, Denies throat swelling and Denies tong
[2020-10-13] MEDS: SODIUM CHLORIDE 0.9% IV 1,000 ML 999 ML IV CONT (20:06)
[2020-10-13 20:13] LABS: Basophils Absolute Auto 0.1 K/mm3 (0.0-0.1); Basophils Percent Auto 0.9 % (0.2-1.2); Eosinophils Absolute Auto 0.7 K/mm3 (0-0.3); Eosinophils Percent Auto 5.1 % (0-4.4); Hematocrit 38.8 % (37.0-47.0); Hemoglobin 12.1 g/dL (12.0-15.0); Immature Granulocyte Absolute 0.06 K/mm3 (0.00-0.031); Immature Granulocyte Percent A 0.4 % (0-0.5); Lymphocytes Absolute Auto 2.01 K/mm3 (0.9-3.2); Lymphocytes Percent Auto 14.3 % (18.3-44.2); Mean Corpuscular HGB Conc 31.2 g/dl (32-36); Mean Corpuscular Hemoglobin 29.8 pg (26-34); Mean Corpuscular Volume 95.6 fl (80-100); Mean Platelet Volume 11.5 fl (7.4-10.4); Monocytes Absolute Auto 0.9 K/mm3 (0.1-0.6); Monocytes Percent Auto 6.2 % (2.6-8.5); Neutrophils Absolute Auto 10.3 K/mm3 (1.3-6.7); Neutrophils Percent Auto 73.1 % (45.5-73.1); Platelet Count Result 234 k/mm3 (150-375); Red Blood Count 4.06 M/mm3 (4.2-5.4); Red Cell Distribution Width 13.9 % (11.5-14.5); White Blood Count 14.1 K/mm3 (4.5-10.0)
[2020-10-13] MEDS: KETOROLAC 30 MG/ML VIAL (*BKC) IV PUSH (20:15)
[2020-10-13] MEDS: PROMETHAZINE HCL 25 MG/ML AMPUL 12.5 MG IV PUSH (20:16)
[2020-10-13 20:25] LABS: Alanine Aminotransferase 16 U/L (4-35); Albumin Level 4.4 g/dL (3.5-5.1); Alkaline Phosphatase 187 U/L (38-126); Anion Gap 8 mmol/L (8-16); Aspartate Amino Transferase 27 U/L (14-36); Bilirubin,Total 0.2 mg/dL (0.2-1.3); Blood Urea Nitrogen 16 mg/dL (7-17); Calcium 9.5 mg/dL (8.4-10.2); Carbon Dioxide 28 mmol/L (22-30); Chloride 103 mmol/L (98-107); Estimated CRCL calculation 34 ml/min; Estimated Glomerular Filt Rate 49; Glucose 159 mg/dL (65-105); Lipase 52 U/L (23-300); Potassium 4.2 mmol/L (3.4-5.0); Sodium 139 mmol/L (137-145)
[2020-10-13 22:40] VITALS: BP 145/65; PULSE 84; RESP 16; O2SAT 95
[2020-10-13] MEDS: HYDROcodone/acetaminophen (*CRX) 5-325 MG TABLET 1 TAB PO (22:44)
== END 2020-10-13 22:56 | disposition home or self-care (01) ==
PROVIDERS: Emergency Provider Emergency Medicine; PCP Student in an Organized Health Care Education/Training Program
DX: R10.9 Unspecified abdominal pain (principal); N39.0 Urinary tract infection, site not specified; M19.90 Unspecified osteoarthritis, unspecified site; K21.9 Gastro-esophageal reflux disease without esophagitis; E78.5 Hyperlipidemia, unspecified; I10 Essential (primary) hypertension; E11.42 Type 2 diabetes mellitus with diabetic polyneuropathy
CPT/HCPCS: 36415; 74176; 80053; 83690; 85025; 96361; 96374; 96375; 99284; A9270; J1885; J2550; J7030

== ENCOUNTER → 2021-12-17 13:35 | Outpatient (CLI) | payer OTHER, SELFPAY ==
--- NOTE | ~2021-12-17 | MM_ITS ---
EXAMINATION: MM screening [facility] BI w merlyn HISTORY: Screening mammogram TECHNIQUE: Craniocaudal and mediolateral oblique 3-D tomosynthesis images were obtained and synthetic 2-D images were generated. CAD analysis was submitted and interpreted. COMPARISON: 06/13/2020, 02/12/2019, 01/12/2018, 12/17/2016 BREAST PARENCHYMAL COMPOSITION: There are scattered areas of fibroglandular density. FINDINGS: A waxing and waning low-density mass of the central right breast is considered benign. Ther e is no suspicious mass, calcification, or architectural distortion to suggest malignancy in either b reast. There has been no suspicious interval change. IMPRESSION: 1. No mammographic evidence of malignancy. 2. Recommend routine screening mammography in one year. BI-RADS Category 2: Benign finding(s). Reviewed, dictated and finalized at location A.
== END ==
PROVIDERS: PCP Student in an Organized Health Care Education/Training Program; Visit Provider Obstetrics & Gynecology
DX: Z12.31 Encounter for screening mammogram for malignant neoplasm of breast (principal)
CPT/HCPCS: 77063; 77067

== ENCOUNTER → 2023-05-27 14:33 | Outpatient (CLI) | payer OTHER, SELFPAY ==
--- NOTE | ~2023-05-27 | MM_ITS ---
EXAMINATION: MM screening [facility] BI w merlyn HISTORY: Screening mammogram TECHNIQUE: Craniocaudal and mediolateral oblique 3-D tomosynthesis images were obtained and synthetic 2-D images were generated. CAD analysis was submitted and interpreted. COMPARISON: 12/17/2021, 06/13/2020, 03/04/2019, 01/12/2018 BREAST PARENCHYMAL COMPOSITION: There are scattered areas of fibroglandular density. FINDINGS: No suspicious mass, calcification, or architectural distortion are identified in either zachary ast to suggest malignancy. There has been no suspicious interval change. IMPRESSION: 1. No mammographic evidence of malignancy. 2. Recommend routine screening mammography in one year. BI-RADS Category 1: Negative Reviewed, dictated and finalized at location A. TH EDITOR
== END ==
PROVIDERS: PCP Obstetrics & Gynecology; Visit Provider Student in an Organized Health Care Education/Training Program
DX: Z12.31 Encounter for screening mammogram for malignant neoplasm of breast (principal)
CPT/HCPCS: 77063; 77067

== ENCOUNTER 2023-11-12 11:54 | Emergency (ER) | payer OTHER, SELFPAY ==
[2023-11-12 12:06] VITALS: BP 151/84; PULSE 101; RESP 18; TEMP 36.2; O2SAT 99
[2023-11-12 13:20] VITALS: O2SAT 99
[2023-11-12 13:33] VITALS: O2SAT 99
--- NOTE | 2023-11-12 13:36 | ED.EPISTAXIS ---
HPI - Epistaxis General Chief complaint: Epistaxis Stated complaint: epistaxis Time Seen by Provider: 11/12/23 13:18 Source: patient Mode of arrival: ambulatory Limitations: no limitations History of Present Illness HPI Narrative: 78 years old white female came to the emergency room with bleeding from left nostril started to hour prior to arrival to the emergency room, resolved on arrival to the ED. patient on baby aspirin once a day, did not take the aspirin for the last 2 days. She denies any tight coagulate medications. She denies any trauma, sneezing, runny nose or nasal congestion. Patient used to be on Flonase few days ago. Related Data Home Medications Medication Instructions Recorded Confirmed Lactobacillus acidophilus 1,000 mmu cells PO DAILY 05/17/19 06/23/20 ascorbic acid 125 mg-collagen, 3 cap PO DAILY 05/17/19 06/23/20 hydrolyzed 740 mg capsule (Collagen Plus Vitamin C) azelastine 137 mcg (0.1 %) nasal 1 spray intranasal Q12H PRN 05/17/19 06/23/20 spray aerosol Shortness Of Breath Or Wheezing biotin 1 mg capsule 1 mg PO DAILY 05/17/19 06/23/20 cholecalciferol (vitamin D3) 50 2,000 unit PO DAILY 05/17/19 06/23/20 mcg (2,000 unit) tablet (Vitamin D3) fluticasone propionate 50 1 spray intranasal DAILY PRN 05/17/19 06/23/20 mcg/actuation nasal Allergic Symptoms spray,suspension (Flonase Allergy Relief) lisinopril 40 mg tablet 40 mg PO DAILY 05/17/19 06/23/20 metformin 500 mg tablet 500 mg PO BID 05/17/19 06/23/20 omeprazole 40 mg capsule,delayed 20 mg PO DAILY 05/17/19 06/23/20 release simvastatin 5 mg tablet 20 mg PO HS 05/17/19 06/23/20 aspirin 325 mg tablet 325 mg PO DAILY 06/16/20 06/23/20 magnesium 500 mg tablet 500 mg PO DAILY 06/16/20 06/23/20 multivitamin with minerals 3 tablet PO DAILY 06/16/20 06/23/20 (Hair,Skin and Nails tablet) Allergies Allergy/AdvReac Type Severity Reaction Status Date / Time codeine AdvReac Unknown Fatigued/FA Verified 11/12/23 11:57 INTED Review of Systems Review of Systems: All systems reviewed & are unremarkable except as noted in HPI and below PMFSH Past Medical History Medical History Arthritis Diabetes GERD (gastroesophageal reflux disease) Hyperlipidemia Hypertension Peripheral neuropathy Family History Family History Mother Cerebrovascular accident, Onset Age: 82 Sibling Family history of lung cancer Patient's sister is Family history of gastrointestinal disorder Father Family history of alcoholism, Onset Age: 70 Social History Social History Smoking status: Never smoker Alcohol intake: never Living arrangements: with family Gender identity (if verbalized by the patient): Female Spiritual care concerns: No Exam Narrative: General appearance: Well-developed, well-nourished Skin: Normal color Head: Normocephalic, nontraumatic Eyes: Clear conjunctiva ENT: Oropharynx normal, ears normal, Left nostril showed no active bleeding at this time, anterior nasal septal area is little bed hyperemic which high likely the underlying cause of patient's bleeding. Vascular: Normal peripheral pulses, normal capillary refill. Neurologic: Alert and oriented ?3, [employer] is normal as tested, no gross motor deficit Course Vital Signs Vital signs: Vital Signs Temperature 36.2 C L 11/12/23 12:06 Pulse Rate 101 H 11/12/23 12:06 Respiratory Rate 18 11/12/23 12:06 Blood Pressure 151/84 H 11/12/23 12:06 Pulse Oximetry 99 11/12/23 12:06
[2023-11-12 13:49] VITALS: BP 127/82; PULSE 84; RESP 16; O2SAT 98
--- NOTE | 2023-11-12 13:50 | PC.NURSE ---
SILVER NITRATE STICKS X2 ASKED FOR BY DR CAIN
--- NOTE | 2023-11-12 13:57 | PC.NURSE ---
Dr. Hopkins applied silver nitrate to left nares. Pt tolerated well
--- NOTE | 2023-11-12 13:59 | PC.NURSE ---
Pt states nose bleed subside since admission to ER. Denies any c/o pain
== END 2023-11-12 14:17 | disposition home or self-care (01) ==
PROVIDERS: Emergency Provider Emergency Medicine; PCP Student in an Organized Health Care Education/Training Program
DX: R04.0 Epistaxis (principal); I10 Essential (primary) hypertension; E78.5 Hyperlipidemia, unspecified; E11.42 Type 2 diabetes mellitus with diabetic polyneuropathy; M19.90 Unspecified osteoarthritis, unspecified site; K21.9 Gastro-esophageal reflux disease without esophagitis; Z79.82 Long term (current) use of aspirin; Z79.84 Long term (current) use of oral hypoglycemic drugs
CPT/HCPCS: 30901; 99283

== ENCOUNTER 2024-10-25 15:20 | Outpatient (CLI) | payer OTHER, SELFPAY ==
--- NOTE | ~2024-10-25 | MM_ITS ---
EXAMINATION: MM screening [facility] w [facility] HISTORY: Screening TECHNIQUE: Craniocaudal and mediolateral oblique 3-D tomosynthesis images were obtained and synthetic 2-D images were generated. CAD analysis was submitted and interpreted. COMPARISON: Comparison to multiple prior studies sequentially, with oldest reviewed study dated 03/2017. BREAST PARENCHYMAL COMPOSITION: Not dense: There are scattered areas of fibroglandular density. FINDINGS: There is no evidence of suspicious mass, calcification, or architectural distortion to sugg est malignancy in either breast. There has been no suspicious interval change. IMPRESSION: 1. No mammographic evidence of malignancy. 2. Recommend routine screening mammography in one year. BI-RADS Category 1: Negative Reviewed, dictated and finalized at location B.
== END 2024-10-25 15:21 | disposition home or self-care (01) ==
LOC: MICIMG 15:22
PROVIDERS: PCP Student in an Organized Health Care Education/Training Program; Visit Provider Student in an Organized Health Care Education/Training Program
DX: Z12.31 Encounter for screening mammogram for malignant neoplasm of breast (principal)
CPT/HCPCS: 77063; 77067